=== PATIENT | female | born 2005 | race Caucasian/White ===

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

== ENCOUNTER → 2025-02-05 | Outpatient (CLI) | payer BC ==
--- NOTE | 2025-02-05 13:22 | XR ---
EXAMINATION TYPE: XR knee complete bilateral DATE OF EXAM: 02/05/2025 1:06 PM COMPARISON: None CLINICAL INDICATION: Female, 19 years old with history of R52 PAIN, UNSPECIFIED; PHH, pain TECHNIQUE: XR knee complete bilateral 3 views submitted. FINDINGS: No evidence of any acute osseous pathology or soft tissue swelling. IMPRESSION: 1. No acute osseous pathology. [facility], , 02/05/2025 1:19 PM
== END | disposition home or self-care (01) ==
LOC: RADXRMAIN 12:45
PROVIDERS: ATTEND Family Medicine
DX: M25.561 Pain in right knee (principal); M25.562 Pain in left knee